=== PATIENT | female | born 1995 | race Caucasian/White ===

== ENCOUNTER 2016-09-29 00:01 | Inpatient (IN) ==
[2016-09-29] MEDS ORDERED: AMBIEN PO PRN ×2 (00:20→16:08)
[2016-09-29] MEDS ORDERED: BRETHINE SUBQ PRN (00:20)
[2016-09-29] MEDS ORDERED: PEPCID IV PRN (00:20)
[2016-09-29] MEDS ORDERED: PEPCID PO PRN (00:20)
[2016-09-29] MEDS ORDERED: STADOL IV PRN ×3 (00:20)
[2016-09-29] MEDS ORDERED: TYLENOL PO PRN (00:20)
[2016-09-29] MEDS ORDERED: ZOFRAN IV PRN (00:20)
[2016-09-29] MEDS: LR 1,000 ML IV SCH ×3 (01:40→08:16)
[2016-09-29 01:51] LABS: URINE SOURCE VOIDED
[2016-09-29 01:51] LABS: MANUAL DIFF NEEDED? NO
[2016-09-29 01:54] LABS: BASO% 0.2 % (0.0-0.8); EOS# 0.08 X1000 (0.0-0.7); EOS% 0.9 % (0.0-10.0); HEMATOCRIT 32.8 % (37.0-47.0); IMM GRAN# 0.02 X1000 (0.0-0.04); IMM GRAN% 0.2 % (0.0-0.5); LYMPH# 3.09 X1000 (1.2-3.4); LYMPH% 32.9 % (20.5-51.1); MCH 30.1 PG (27-31); MCHC 33.5 g/dL (33-37); MCV 89.9 FL (81-99); MONO# 0.72 X1000 (0.11-0.59); MONO% 7.7 % (1.7-9.3); MPV 12.3 FL (7.4-10.4); NEUT% 58.1 % (42.2-75.2); PLT 137 X1000 (130-400); RBC 3.65 XMIL (4.2-5.4)
[2016-09-29 02:01] LABS: BILIRUBIN URINE NEGATIVE (NEGATIVE); BLOOD URINE NEGATIVE (NEGATIVE); CLARITY SL. CLOUDY (CLEAR); COLOR YELLOW; GLUCOSE URINE NEGATIVE (NEGATIVE); LEUKOCYTES URINE TRACE (NEGATIVE); NITRITE URINE NEGATIVE (NEGATIVE); PH URINE 6.5; PROTEIN URINE NEGATIVE (NEGATIVE); UROBILINOGEN URINE NORMAL
[2016-09-29 02:03] LABS: UR AMPHETAMINES QUAL NONE DETECTED (NONE DETECT); UR BARBITUATES QUAL NONE DETECTED (NONE DETECT); UR BENZODIAZEPIN QUAL NONE DETECTED (NONE DETECT); UR CANNABINOIDS QUAL NONE DETECTED (NONE DETECT); UR COCAINE QUAL NONE DETECTED (NONE DETECT); UR MDMA QUAL NONE DETECTED (NONE DETECT); UR METHADONE QUAL NONE DETECTED (NONE DETECT); UR METHAMPHETAMINE QUAL NONE DETECTED (NONE DETECT); UR OPIATES QUAL NONE DETECTED (NONE DETECT); UR OXYCODONE QUAL NONE DETECTED (NONE DETECT); UR PCP QUAL NONE DETECTED (NONE DETECT); UR TCA QUAL NONE DETECTED (NONE DETECT)
[2016-09-29] MEDS ORDERED: CYTOTEC PO ONE (03:00)
[2016-09-29] MEDS ORDERED: PITOCIN 30 UNITS/LR 30 UNITS/500 ML IV.SOLN IV SCH (07:00)
[2016-09-29] MEDS ORDERED: FENTANYL-BUPIV-NS 2 MCG-0.1% 200 ML EPIDURAL PRN (08:09)
[2016-09-29] MEDS ORDERED: MINERAL OIL ONE (09:33)
[2016-09-29] MEDS ORDERED: XYLOCAINE-MPF 1% INJ ONE (09:34)
[2016-09-29] MEDS ORDERED: M-M-R II VACCINE SUBQ ONE (16:08)
[2016-09-29] MEDS ORDERED: CYTOTEC PO PRN (16:08)
[2016-09-29] MEDS ORDERED: BENADRYL PO PRN (16:08)
[2016-09-29] MEDS ORDERED: BOOSTRIX VACCINE IM ONE (16:08)
[2016-09-29] MEDS ORDERED: PITOCIN 30 UNITS/LR 30 UNITS/500 ML IV.SOLN IV ONE (16:08)
[2016-09-29] MEDS ORDERED: PERCOCET-10 PO PRN (16:08)
[2016-09-29] MEDS ORDERED: HYDROXYZINE IM PRN (16:08)
[2016-09-29] MEDS ORDERED: NORCO-10 PO PRN (16:08)
[2016-09-29] MEDS ORDERED: NORCO-5 PO PRN (16:08)
[2016-09-29] MEDS ORDERED: PITOCIN IM PRN (16:08)
[2016-09-29] MEDS ORDERED: MINERAL OIL PO PRN (16:08)
[2016-09-29] MEDS ORDERED: PERCOCET-5 PO PRN (16:08)
[2016-09-29] MEDS ORDERED: BENADRYL IV PRN (16:08)
[2016-09-29] MEDS ORDERED: PITOCIN 20 UNITS/LR 20 UNITS/1,000 ML IV.SOLN IV SCH (16:08)
[2016-09-29] MEDS ORDERED: PERI MEDS (DERMOPLAST/NUPERCAINAL/TUCKS) MISC PRN (16:08)
[2016-09-29] MEDS ORDERED: XYLOCAINE-MPF 1% INJ PRN (16:08)
[2016-09-29] MEDS: MOTRIN PO PRN (17:02)
--- NOTE | 2016-09-29 18:41 | OPERATIVE NOTE ---
PROCEDURE DATE: 09/29/2016 DELIVERING PHYSICIAN: Charles Bruno MD. TYPE OF DELIVERY: Spontaneous controlled vaginal delivery. ANESTHESIA: Epidural. FINDINGS: At 1532 a 7 pound 15 ounce female infant was delivered in occiput anterior presentation. Apgars were 9 at 1 minute and 10 at 5 minutes. SUMMARY: Laura Troy is a 21-year-old 3, para 2-0-0-2, at 39 and 5/7 weeks gestation. Her blood type is O positive. Rubella immune. Hepatitis B surface antigen, HIV, and group B strep are all negative. She presented to Labor and Delivery at approximately midnight and we gave her a single dose of Cytotec 100 mg by mouth. This morning we began IV Pitocin. Epidural was placed for labor pain management. Membranes were ruptured, revealing clear fluid. She progressed through labor without signs of distress or dystocia. She became complete and began pushing. She rapidly crowned. At that point, she was placed in dorsal lithotomy position. Perineum was prepped and draped in usual sterile fashion. Spontaneous controlled vaginal delivery occurred. The shoulders and body delivered without complications. The nuchal cord was reduced. The oropharynx was bulb suctioned. Cord was clamped and cut. The was handed to the nurses for further care and evaluation. Cord blood was obtained. Placenta was spontaneously delivered and was intact. There were no cervical or vaginal lacerations. Estimated blood loss was 150 mL. Patient remained in the LDR recovering without difficulty. cc: Charles Bruno MD
[2016-09-29] MEDS: PERICOLACE PO SCH (21:40)
[2016-09-29] MEDS: HYDROXYZINE PO PRN (22:48)
[2016-09-30] MEDS: MOTRIN PO PRN ×3 (04:54→21:39)
[2016-09-30 05:44] LABS: HEMATOCRIT 29.5 % (37.0-47.0); HEMOGLOBIN 9.6 g/dL (12.0-16.0); MCH 29.4 PG (27-31); MCHC 32.5 g/dL (33-37); MCV 90.2 FL (81-99); MPV 12.7 FL (7.4-10.4); RBC 3.27 XMIL (4.2-5.4)
[2016-09-30] MEDS: PRECARE PO SCH (08:44)
[2016-09-30] MEDS: HYDROXYZINE PO PRN (08:49)
[2016-09-30] MEDS: PERICOLACE PO SCH (20:17)
[2016-09-30] MEDS ORDERED: HYDROCORTISONE 1% CREAM TOP SCH (21:00)
[2016-10-01] MEDS: MOTRIN PO PRN (09:04)
[2016-10-01] MEDS: HYDROXYZINE PO PRN (09:04)
[2016-10-01] MEDS: PRECARE PO SCH (09:04)
[2016-10-01 09:08] VITALS: BP 125/78
--- NOTE | 2016-10-01 12:28 | DISCHARGE SUMMARY ---
ADMISSION DATE: 09/29/2016 DISCHARGE DATE: 10/01/2016 ADMIT DIAGNOSIS: Term for induction. DISCHARGE DIAGNOSIS: Term delivered via vaginal delivery after induction. CONDITION: Stable. DIET: As tolerated. ACTIVITY: Routine . MEDICATIONS: She is to continue her vitamins with iron, she is to take [id number] stool softeners and [id number] nonsteroidals, and a script has been given for [facility] 5, #14. FOLLOW UP: She is to follow up with Dr. Bruno is 6 weeks. HOSPITAL COURSE: Please refer to Ms. Troy's records and delivery note. She was delivered via vaginal delivery and has done well afterwards and is currently desiring discharge. PHYSICAL EXAMINATION: VITAL SIGNS: Her vital signs are stable. She is afebrile. GENERAL: She is alert, cooperative, and in no distress. NECK: Supple. LUNGS: Clear. HEART: Regular, sinus rhythm. ABDOMEN: Slightly distended. The uterus is firm and nontender. LABORATORY DATA: Hemoglobin is 9.6. ASSESSMENT: postoperative day 2. PLAN: Discharge to home. cc: MD Charles Bhatti MD
== END 2016-10-01 12:25 | disposition home or self-care (01) ==
LOC: P.LD 00:05 → P.WC 20:29
PROVIDERS: ADMIT Obstetrics & Gynecology; ATTEND Obstetrics & Gynecology